=== PATIENT | male | born 1950 | race Caucasian/White ===

== ENCOUNTER 2020-06-19 10:02 | Emergency (ER) | payer OTHER ==
--- OUTSIDE RECORDS SUMMARY | 2020-06-19 10:04 | XMS REPORT | Clinical Summary ---
:1950 Author Organization [facility] Address [address] [place] [address] Care Team Providers Name Role Phone Asked, Pcp Primary Care Provider Unavailable Allergies Active Allergy Reactions Severity Noted Date Comments Cefaclor Rash Low 02/06/2013 RASH AND ITCHIN G ON HANDS Medications Medication Sig Dispensed Refills Start Date End Date Status losartan (COZAAR) 0 07/19/2018 A ctive 100 MG tablet tamsulosin 0 07/19/2018 Active (FLOMAX) 0.4 mg capsule esomeprazole Take 40 mg by 0 Act abdelrahman (NexIUM) 40 MG mouth daily capsule before breakfast. vit B Take 1 tablet 0 Active complex-vitamin by mouth C-folic acid daily. (NEPHRO-GERMAN OTC) 0.8 mg tablet cholecalciferol, Take 1,000 0 Ac tive vitamin D3, 1,000 Units by unit tablet mouth daily. rosuvastatin Take 10 mg by 0 Act abdelrahman (CRESTOR) 10 mg mouth daily. tablet celecoxib TAKE 1 1 04/17/2018 Discontin ued (Med (CeleBREX) 200 MG CAPSULE BY 0 L ist Cleanup) capsule MOUTH EVERY DAY WITH FOOD nabumetone Take 500 mg 2 06/26/2018 Discon tinued (Med (RELAFEN) 500 MG by mouth [address] Cleanup) tablet (two) times a day. rosuvastatin TAKE 1 TABLET 0 06/30/2018 Di scontinued (Med (CRESTOR) 5 MG BY MOUTH 0 List Cleanup) tablet EVERY DAY WITH A MEAL Active Problems Problem Noted Date Nasal turbinate hypertrophy 10/02/2014 MARIE (obstructive sleep apnea) 10/02/2014 Encounters Date Type Specialty Care Team Description 11/12/2019 Documentation ADMIN Keren Newberry RN 11/11/2019 Lab Lab Zan Fleming MD Rese arch subject 11/11/2019 Orders Only ADMIN Keren Newberry RN Resear ch subject (Primary Dx) 11/11/2019 Travel 11/09/2019 Travel 11/09/2019 Abstract Neurology Keren Newberry RN 11/09/2019 Telephone Neurology Keren Newberry RN 10/28/2019 Travel after 06/19/2019 Surgical History Surgery Date Site/Laterality Comments HERNIA REPAIR Medical History Medical History Date Comments Hypertension Hyperlipidemia GERD (gastroesophageal reflux disease) Family History Medical History Relation Name Comments Heart disease Father Diabetes Mother Heart disease Mother Relation Name Status Comments Father Mother Social History Tobacco Use Types Packs/Day Years Used Date Never Smoker Smokeless Tobacco: Never Used Sex Assigned at Date Recorded Not on file Last Filed Vital Signs Not on file Plan of Treatment Health Maintenance Due Date Last Done Comments COVID-19 VACCINE (1 of 2) 1964 COLONOSCOPY SCREENING 02/28/1998 SHINGLES VACCINES (#1) 02/28/1998 65+ PNEUMOCOCCAL VACCINE (1 of 1 - PPSV23) 02/28/2013 INFLUENZA VACCINE 12/19/2019 Procedures Procedure Name Priority Date/Time Associated Diagnosis Comme nts ESTIMATED GFR Routine 11/11/2019 12:13 PM Results for this CDT procedure are i n the results section. CBC HEMOGRAM Routine 11/11/2019 12:13 PM Research subject Resu lts for this CDT procedure are i n the results section. BASIC METABOLIC Routine 11/11/2019 12:13 PM Research subject R esults for this PANEL CDT procedure are i n the results section. after 06/19/2019 Results Estimated GFR (11/11/2019 12:13 PM CDT) Estimated GFR 65 mL/min/1.73 [facility] Comment: [facility] Catergory Units Interpretation G1 >=90 Normal or high G2 60-89 Mildly decreased G3a 45-59 Mildly to moderately decreas ed G3b 30-44 Moderately to severely decre ased G4 15-29 Severely decreased G5 <15 Kidney failure The eGFR was calculated using the Chronic Kidney Disea se Epidemiology Collaboration (CKD-EPI) equation. Interpretation is based on recommendations of the National Kidney Foundation-Kidney Disease Outcomes Favian lity Initiative (NKF-KDOQI) published in 2014. Specimen Performing Organization Address City/State/ZIP Code Phon e Number [facility] DEPARTMENT OF PATHOLOGY AND [address] [place] [address] [phone] [address] CBC hemogram (11/11/2019 12:13 PM CDT) Pathologist Sig nature WBC 6.05 4.50 - 11.00 k/uL [facility] RBC 4.81 4.40 - 6.00 m/uL [facility] HGB 15.5 14.0 - 18.0 g/dL [facility] HCT 45.2 41.0 - 51.0 % [facility] MCV 94.0 82.0 - 100.0 fL [facility] MCH 32.2 27.0 - 34.0 pg [facility] MCHC 34.3 31.0 - 37.0 g/dL [facility] RDW - SD 42.9 37.0 - 55.0 fL [facility] MPV 11.0 8.8 - 13.2 fL [facility] Platelet count 228 150 - 400 k/uL [facility] Nucleated RBC 0.00 /100 WBC [facility] Specimen Blood Performing Organization Address City/[facility] Phon e Number [facility] DEPARTMENT OF PATHOLOGY AND [address] [place] [address] [phone] [address] Basic metabolic panel (11/11/2019 12:13 PM CDT) [facility] Sodium 135 135 - 148 mEq/L [facility] L Potassium 4.3 3.5 - 5.0 mEq/L [facility] L Chloride 96 (L) 98 - 112 mEq/L [facility] CO2 25 24 - 31 mEq/L [facility] Anion gap 14@ANIO 7 - 15 mEq/L [facility] BUN 16 8 - 23 mg/dL [facility] Creatinine 1.12 0.70 - 1.20 mg/dL [facility] Glucose 107 (H) 65 - 99 mg/dL [facility] Calcium 9.8 8.8 - 10.2 mg/dL [facility] Specimen Blood Performing Organization Address City/[facility] Phon e Number [facility] DEPARTMENT OF PATHOLOGY AND [address] [place] [address] [phone] [facility] [address] [place] [address] after 06/19/2019 Advance Directives For more information, please contact: [phone] Type Date Recorded Patient 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
--- OUTSIDE RECORDS SUMMARY | 2020-06-19 10:04 | XMS REPORT | Clinical Summary ---
:1950 Author Organization [facility] Address [address] [place] [address] Care Team Providers Name Role Phone Himanshu Díaz Primary Care Provider Allergies Active Allergy Reactions Severity Noted Date Comments Cefaclor Rash Low 02/06/2013 RASH AND ITCHIN G ON HANDS Medications Medication Sig Dispensed Refills Start Date End Date Status ezetimibe (ZETIA) 10 mg Take 10 mg by 0 Active tablet mouth daily. esomeprazole (NEXIUM) Take 40 mg by 0 Active 40 MG capsule mouth daily. escitalopram (LEXAPRO) Take 20 mg by 0 Active 20 MG tablet mouth daily. losartan (COZAAR) 50 MG Take 100 mg by 0 Active tablet mouth daily . tamsulosin (FLOMAX) 0.4 Take 0.4 mg by 0 Active mg Cp24 24 hr capsule mouth daily. multivitamin capsule Take 1 capsule by 0 Active mouth daily. Missing or kyani daily po ( 0 Ac tive Non-Formulary supplement) . Medication Active Problems No known active problems Social History Tobacco Use Types Packs/Day Years Used Date Former Smoker Quit: 1997 Smokeless Tobacco: Never Used Comments: QUIT SMOKING THE Alcohol Use Drinks/Week oz/Week Comments Yes 2 Glasses of wine 2.0 2 GLASSES PER NIGHT Sex Assigned at Date Recorded Not on file Last Filed Vital Signs Not on file Plan of Treatment Health Maintenance Due Date Last Done Comments PNEUMOCOCCAL 65+ YRS (1 of - 02/28/2013 [id number]) MEDICARE ANNUAL WELLNESS (YEAR 2 or FIRST 02/18/2014 YEAR if no IPPE) INFLUENZA VACCINE (#1) 2020 COLON CANCER SCREENING COLONOSCOPY 08/13/2027 08/12/2017, 0 02/09/2013 Results Not on fileafter 06/19/2019 Insurance Payer Benefit Plan / Subscriber ID Effective Dates Phone Addre ss Type Group MEDICARE MEDICARE A B [id number] 2013-Presen Medicare t AETNA - [place] CARE AETNA OPEN [id number] 2012-Present HMO/POS ACCESS HMO NAP AETNA - [place] CARE AETNA INDEMNITY [id number] 2013-Present Comm NON CONTR Advance Directives For more information, please contact: [phone] Code Status Date Activated Date Inactivated Comments Code ONE 02/09/2013 9:35 AM 02/09/2013 12:15 PM All possib le means of support, including: cardi ac massage, mechanical venti lation, and defibrillation w ill be used to support life.
--- OUTSIDE RECORDS SUMMARY | 2020-06-19 10:05 | XMS REPORT | Summary of Care ---
:1950 Author Name ROSY N.P. Address Unavailable Unavailable , Care Team Providers Name Role Phone ROSY N.P. 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) Status: Active Post-traumatic osteoarthritis of left ankle (715.27, M19.172 ) Status: Active Medications Name Dates Details Gabapentin 300 MG Oral Capsule TAKE 1 CAPSULE EVERY 8 HOURS Quantity: 90 Refills: 1 ROSY N.P., ARIE Start : 17-Jun-2020 Active Allergies and Adverse Reactions Name Dates Details No Known Drug Allergies (Allergy) Status : Active Procedures Procedure Dates Details Post Op Promis 29 Survey Date: 01-Jun-2020 Immunization Name Dates Details Immunizations not documented Social History Name Dates Details Tobacco smoking consumption unknown (finding) Vital Signs Date Test Result Details No Known Vitals to report Results Date Description Value Details Results not documented Plan of Care Name Dates Details Planned Observations Planned Goals not documented Planned Encounters Appointment; RICHY GARNER M.D. On: 19-Jul-2020 11: 30 Interventions Provided Medication ChangesGabapentin 300 MG Oral Capsule - Start Instructions Name Dates Details Instructions not documented Encounters Appointment; RICHY GARNER M.D. On: 16-Nov-2019 9: 50 Encounter Diagnosis: Problem not documented Appointment; RICHY GARNER M.D. On: 08-Feb-2020 14 :50 Encounter Diagnosis: Problem not documented Appointment; ARIE GALLEGOS NP On: 10-Feb-2020 11:40 Encounter Diagnosis: Problem not documented Appointment; ARIE GALLEGOS NP On: 12-Feb-2020 11:15 Encounter Diagnosis: Problem not documented Appointment; ARIE GALLEGOS NP On: 19-Feb-2020 13:00 Encounter Diagnosis: Problem not documented Appointment; RICHY GARNER M.D. On: 27-Apr-2020 14: 00 Encounter Diagnosis: Problem not documented Appointment; RICHY GARNER M.D. On: 10-May-2020 10 :20 Encounter Diagnosis: Problem not documented Appointment; ARIE GALLEGOS NP On: 17-Jun-2020 11:15 Encounter Diagnosis: Problem not documented
--- OUTSIDE RECORDS SUMMARY | 2020-06-19 10:05 | XMS REPORT | Summary of Care ---
:1950 Author Name Kristie Address Unavailable Unavailable , Care Team Providers Name Role Phone Kristie Unavailable Unavailable PATSY CLARK Unavailable Unavailable EMERY CLARK Unavailable Unavailable Unavailable Unavailable Unavailable Functional Status Name Dates Details Functional status health issues are not documented Status: Name Dates Details Cognitive status health issues are not documented Status: Problems Name Dates Details Left ankle pain (719.47, M25.572) Status : Active Arthritis of ankle, left (716.97, M19.072) Status: Active Medications Name Dates Details Medications not documented Allergies and Adverse Reactions Name Dates Details Allergy history not documented Status: Procedures Procedure Dates Details Post Op Promis 29 Survey Date: 01-Jun-2020 Immunization Name Dates Details Immunizations not documented Social History Name Dates Details Tobacco smoking consumption unknown (finding) Vital Signs Date Test Result Details No Known Vitals to report Results Date Description Value Details Results not documented Plan of Care Name Dates Details Planned Observations Planned Goals not documented Planned Encounters Appointment; ARIE GALLEGOS NP On: 07-Jun-2020 10:20 Interventions Provided Labs/Procedures/ImagingPost Op Promis 29 Survey; To Be Done: 01 Jun 2020 Instructions Name Dates Details Instructions not documented [...]
--- OUTSIDE RECORDS SUMMARY | 2020-06-19 10:05 | XMS REPORT | Continuity of Care Document ---
:1950 Author Organization [facility] t Address [address] [place] [address] Care Team Providers Name Role Phone Asked, Pcp Primary Care Physician Unavailable ROSY Attending Clinician Unavailable PATSY Attending Clinician Unavailable Rohith OH Attending Clinician Unavailable Casimiro Fleming MD Attending Clinician Sonny HERNANDEZ Attending Clinician Unavailable Sonny HERNANDEZ Admitting Clinician Unavailable Payers Payer Name Policy Type Policy Effective Date Expiration Date Sour ce Number AETNA MEDICAREAETNA [id number] 2019 [place] MEDICARE HMO/PPO 00:00:00 Methodis t [id number] -PresentHMO Problems Condition Condition Condition Status Onset Resolution Last Treating Co mments Source Name Details Category Date Date Treatment Clinician Date Nasal Nasal Disease Active Marilla turbinate turbinate 5-16 Meth veronica hypertroph hypertroph 00:00: st y y 00 MARIE MARIE Disease Active Marilla (obstructi (obstructi 5-16 Me thodi ve sleep ve sleep 00:00: st apnea) apnea) 00 Left ankle Left ankle Problem Active U nivers pain pain [facility] [place] [facility] Arthritis Arthritis Problem Active Uni vers of ankle, of ankle, ity of left left [place] [facility] Achilles Achilles Problem Active Unive rs tendon tendon [place] contract[place] contractur [place] due to e due to Physic i neurologic neurologic an s cause cause Post-traum Post-traum Problem Active U nivers atic atic ity of osteoarth[place]oarthr [place] itis of itis of Physici left ankle left ankle an s Allergies, Adverse Reactions, Alerts Allergy Allergy Status Severity Reaction(s) Onset Inactive Treating Comm ents Source Name Type Date Date Clinician No Known DA Active U 2019- [facility] Allergie 2-19 [facility] [place] Cefaclor Propensi Active Rash RASH [place] to 02-06 [place] Methodi adverse 00:00: ON HANDS st reaction 00 s to drug Cefaclor Propensi Active Rash RASH [facility] - adverse 00:00: ON HANDS Medical reaction 00 Center s Family History Family Member Diagnosis Comments Start Date Stop Date Source Natural father Heart disease [facility] Natural mother [facility] Natural mother Heart disease [facility] Social History Social Habit Start Date Stop Date Quantity Comments Source History of Current smoker [facility] es - tobacco use [facility] Cent[facility] r Sex Assigned At [facility] Tobacco use and 2017-08-12 2017-08-12 Never used [facility] - exposure 00:00:00 00:00:00 [facility] Alcohol intake 2017-08-12 2017-08-12 Current drinker [facility] Terry nassar [facility] - 00:00:00 00:00:00 of [facility] (finding) Tobacco Comment 2013-02-09 2013-02-09 QUIT SMOKING THE [facility]soco - 00:00:00 00:00:[address] [place] [address] Alcohol Comment 2013-02-06 2013-02-06 2 GLASSES PER [facility]soco - 00:00:00 00:00:00 [facility] Smoking Status Start Date Stop Date Source Never smoker [facility] [place] Former smoker 2017-08-12 00:00:00 2017-08-12 00:00:00 [facility] Medications Ordered Filled Start Stop Current Ordering Indication Dosage Frequency Signature Comments Components Source Medication Medication Date Date Medication? Clinician (SIG) Name Name Gabapentin Gabapentin Yes ARIE 1 Q8H TAKE 1 Univers 300 MG Oral 300 MG Oral 1-29 ROSY CAPSULE ity of Capsule Capsule 00:00: N.P. EVERY 8 [place] 00 HOU[place] Physici ans rosuvastati 2019-0 Yes 10mg QD Take 10 mg [facility] n (CRESTOR) 6-22 by mouth Meth veronica 10 mg 16:05: daily. st tablet 22 cholecalcif 2019-0 Yes 1000U QD Take 1,000 Marilla kathya, 6-22 Units by Methodi vitamin D3, 16:02: mouth st 1,000 unit 16 daily. tablet vit B 2019- Yes 1{tbl} QD Take 1 Marilla complex-vit 6-22 tablet by Met mp batres 16:02: mouth st C-folic 00 daily. acid (NEPHRO-VIT E OTC) 0.8 mg tablet esomeprazol Yes 40mg QD Take 40 mg Hector e (NexIUM) 6-22 by mouth Metho di 40 MG 16:01: daily st capsule 23 before breakfast. losartan Yes Marilla (COZAAR) 3-02 Methodi 100 MG 00:00: st tablet 00 tamsulosin Yes Marilla (FLOMAX) 3 Methodi 0.4 mg 00:00: st capsule 00 rosuvastati 2020- No TAKE 1 Seun ston n (CRESTOR) 2-03 25- TABLET BY Hi thodi 5 MG tablet 00:00: 00:[address] 00 :00 EVERY DAY WITH A MEAL nabumetone 2020- No 500mg Q.5D Take 500 [place] (RELAFEN) 2- 06-22 mg by Methodi 500 MG 00:00: 00:[address] tablet 00 :00 (two) times a day. celecoxib 2017-05 2020- No TAKE 1 [place] (CeleBREX) 06-17- CAPSULE BY Hi thodi 200 MG 00:00: 00:[address] capsule 00 :00 EVERY DAY WITH FOOD ezetimibe Yes 10mg QD Take [address] (ZETIA) 10 - by mouth [facility] - mg tablet 11:59: daily. Medica l 10 [place] esomeprazol Yes 40mg QD Take [address] [facility] (NEXIUM) 3-26 by mouth [facility] - 40 MG 11:59: daily. Medical capsule 10 [place] escitalopra Yes 20mg QD Take [address] [facility] (LEXAPRO) 3-26 by mouth Luke s - 20 MG 11:59: daily. Medical tablet 10 Center losartan Yes 100mg QD Take [address] (COZAAR) 50 3-26 mg by [facility] - MG tablet 11:59: mouth Medical 10 daily . [place] tamsulosin Yes .4mg QD Take 0.[address] (FLOMAX) 3-26 mg by [facility] - 0.4 mg Cp24 11:59: mouth Medic al 24 hr 10 daily. [place] capsule multivitami Yes 1{capsu QD Take [address] n capsule 3-26 le} capsule by Luke s - 11:59: mouth Medical 10 daily. Center Missing or Yes kyani [facility] Non-Formula 3-26 daily po ( Delaney kes - ry 11:59: supplement Medical Medication 10 ) . [place] Procedures Procedure Date / Time Performed Performing Clinician Sourc e Post Op Promis 29 2020-06-01 00:00:00 [facility] CT Ankle without 2020-01-20 00:00:00 [facility] contrast [id number] Ankle without 2019-11-16 00:00:00 [facility] contrast [id number] Physicians BASIC METABOLIC PANEL 2019-11-11 12:13:00 Zan Fleming CBC HEMOGRAM 2019-11-11 12:13:00 Zan Fleming ESTIMATED GFR 2019-11-11 12:13:00 Zan Fleming Plan of Care Planned Activity Planned Date Details Comments Source Future Scheduled 2027-08-[address] [facility] - Test 00:00:00 malignant neoplasm of Medica l Center colon (procedure) [code = 246116912] Future Scheduled 2020-01-[address] [facility] - Test 00:00:00 (#1) [code = [facility] INFLUENZA VACCINE (#1)] Future Scheduled 2019-12-19 INFLU[place]ZA VACCINE [place] [facility] Test 00:00:00 [code = INFLUENZA VACCINE] Future Scheduled 2014-02-[address] [facility] - Test 00:00:00 WELLNESS (YEAR 2 or Medical Center FIRST YEAR if no IPPE) [code = MEDICARE ANNUAL WELLNESS (YEAR 2 or FIRST YEAR if no IPPE)] Future Scheduled 2013-02-28 65+ PNEUMOCOCCAL [facility] Test 00:00:00 VACCINE (1 of 1 - PPSV23) [code = 65+ PNEUMOCOCCAL VACCINE (1 of 1 - PPSV23)] Future Scheduled 2013-02-28 PNEUMOCOCCAL 65+ [facility] - Test 00:00:00 (1 of 1 - Medical Center [id number] PCV13) [code = PNEUMOCOCCAL 65+ YRS (1 of 1 - [id number] PCV13)] Future Scheduled 1998-02-28 COLONOSCOPY SCREENING [place] [facility] Test 00:00:00 [code = COLONOSCOPY SCREENING] Future Scheduled 1998-02-28 SHINGLES VACCINES [place] [facility] Test 00:00:00 (#1) [code = SHINGLES VACCINES (#1)] Future Scheduled 1964 COVID-19 VACCINE (1 [place] [facility] Test 00:00:00 of 2) [code = COVID-19 VACCINE (1 of 2)] Future Appointment 2020-07-19 Glory LOCKHART [facility] 11:30:00 Juli GARNER Encounters Start End Encounter Admission Attending Care Care Encounter Source Date/Time Date/Time Type Type Clinicians Facility Department ID 2020-06-17 2020-06-17 LUISANA Quarles Orthopedics [id number] Univers 11:15:00 11:15:00 t; SON SARGENT at [facility] SON SARGENT Orthopedic Ph ysici and Spine [facility] 2020-05-10 2020-05-10 LUISANA Tran UTP [id number] Univers 10:20:00 10:20:00 t; elizabet LOCKHART M.D. [place] Deanna LOCKHART M.D. [facility] 2020-04-27 2020-04-27 LUISANA Tran [id number] Univers 14:00:00 14:00:00 t; elizabet LOCKHART M.D. [place] Deanna LOCKHART M.D. [facility] 2020-04-27 2020-04-27 Outpatient [facility] [id number] 05:02:00 05:02:00 Orthop e dic and Sp[facility] Hospita l 2020-02-19 2020-02-19 LUISANA Quarles UTP [id number] Univers 13:00:00 13:00:00 t; ARIE, PROOFER APPRENTICE ity [place], [place] ARIE, PROOFER APPRENTICE Physi ci ans 2020-02-12 2020-02-12 Appointmen ROSY[facility] UTP [id number] Univers 11:15:00 11:15:00 t; ARIE, PROOFER APPRENTICE [facility] ARIE, PROOFER APPRENTICE Physi ci ans 2020-02-10 2020-02-10 Appointmen ROSY, [facility] UTP [id number] Univers 11:40:00 11:40:00 t; ARIE PROOFER APPRENTICE [facility] [place] ARIE, PROOFER APPRENTICE Physi ci ans 2020-02-08 2020-02-08 Appointmen PATSY, [facility] UTP [id number] Univers 14:50:00 14:50:00 t; elizabet LOCKHART M.D. [place] Deanna LOCKHART M.D. [facility] 2019-11-16 2019-11-[facility] Orthopedics [id number] Univers 09:50:00 09:50:00 t; carola LOCKHART [facility] pablo GARNER M.D. [facility] RICHY Orthopedic Uche shaw M.D. and Spine [facility] 2019-11-11 2019-11-11 Outpatient [facility] [id number] [place]illa 00:00:00 00:00:00 ZAN [address] 2019-11-11 2019-11-11 Outpatient [facility] [id number] [place] 00:00:00 00:00:[address] Results Test Description Test Time Test Comments Results Result Sourc e Comments [U] XRAY ANKLE 2019-11-[address] [facility] 3 VWS LEFT 09:34:00 acquired, not [place] [id number] reported on Physicians this accession number. Basic metabolic panel 2019-11-11 13:58:28 Test Item Value Reference Range Interpretation Comme nts Sodium (test code = 2951-2) 135 135- 148 mEq/L Potassium (test code = 2823-3) 4.3 3.5- 5.0 mEq/L Chloride (test code = 2075-0) 96 98- 112 mEq/L L CO2 (test code = 8-9) 25 24- 31 mEq/L Anion gap (test code = 69520-9) 14@ANIO 7- 15 mEq/L BUN (test code = 3094-0) 16 mg/dL 8-23 Creatinine (test code = 2160-0) 1.12 mg/dL 0.7-1.2 Glucose (test code = 2345-7) 107 mg/dL 65-99 H Calcium (test code = 01912-1) 9.8 mg/dL 8.8-10.2 Lab Interpretation (test code = 93146-9) Abnormal [facility] [id number] 13:58:28 Test Item Value Reference Range Interpretation Comments Estimated GFR (test 65 mL/min/1.73 m2 [facility] Units code = 5488) InterpretationG 1 >=90 Normal or highG2 60-89 Mildly npuzfnzcgI9b 45-59 Mildly to mode rately dcncedrezZ6p 30-44 Moderately to severely decreasedG4 15-29 Severely decre asedG5 <15 Kidn ey failureThe eGFR was calculated alexys hoover the Chronic Kidney Disease Epidemiology Co llaboration (CKD-EPI) equat ion. Interpretation is based on recommendations of the National Kidney Foundation-Kidn ey Disease Outcomes Qualit y Initiative (NKF-KDOQI) pub lished in 2014. Marilla [facility] [id number] 13:29:37 Test Item Value Reference Range Interpretation Comments WBC (test code = 69682-4) 6.05 4.50- 11.00 k/uL RBC (test code = 24560-4) 4.81 m/uL 4.4-6 HGB (test code = 718-7) 15.5 g/dL 14-18 HCT (test code = 4544-3) 45.2 % 41-51 MCV (test code = 787-2) 94.0 fL 82-100 MCH (test code = 785-6) 32.2 pg 27-34 MCHC (test code = 786-4) 34.3 g/dL 31-37 RDW - SD (test code = 83972-9) 42.9 fL 37-55 MPV (test code = 15671-4) 11.0 fL 8.8-13.2 Platelet count (test code = 228 150- 400 k/uL 85137-4) Nucleated RBC (test code = 0.00 /100 WBC 94583-7) [facility] HIV 1 20:39:00 Test Item Value Reference Range Interpretation Comments AB HIV 1 2 (test NONREACTIVE NONREACTIVE Done by Terry shaferEduSourcedterry Qualifacts Systemsaur code = [id number]) 4th Gen HIV Ag/Ab Combo Screen AB HIV 20:39:00 Test Item Value Reference Range Interpretation Comments AB HIV 1 (test code NONREACTIVE NONREACTIVE Done by weeSPINaur = HIV1AB) 4th Gen HIV Ag/ Ab Combo Screen PROTHROMBIN [id number] 19:09:00 Test Item Value Reference Range Interpretation Comments PROTHROMBIN TIME 10.7 secs 10.1-12.5 N PATIENT (test code = PTP) INTERNATIONAL NORMAL 0.95 <2.0 RECOMME NDED THERAPEUTIC RATIO (test code = RANGE FOR ORAL INR) ANTICOAGULANTTR EATMENT: CONDI TION INRProphylaxis of venous thrombos is in 2.0 - 3.0 high-risk medic al or surgical patientsTreatme nt of venous thrombos is 2.0 - 3.0Prevention o f embolism 2.0 - 3.0Prevention o f recurrent embol ism, or 3.0 - 4. 5 patients with mechanical pros thetic intravascular v marvin IS PATIENT ON ANTICOAGULANTS ? ILas Lab been notified if Patient is on Heparin Drip? NOTHROMBOPLASTIN TIME [id number] 19:09:00 Test Item Value Reference Range Interpretation Comments PTT ACTIVATED (test code = APTT) 32.5 secs 24.9-37.0 N IS PATIENT ON ANTICOAGULANTS ? ILas Lab been notified if Patient is on Heparin Drip? NOCOMPREHENSIVE METABOLIC [id number] 19:09:00 Test Item Value Reference Range Interpretation Comments SODIUM (test code = 139 mmol/L 136-145 N NA) POTASSIUM (test code = 4.2 mmol/L 3.5-5.1 N K) CHLORIDE (test code = 100.0 mmol/L 98-107 N CL) CARBON DIOXIDE (test 25.8 mmol/L 21-32 N code = CO2) GLUCOSE (test code = 100 mg/dL 70-110 N GLU) BLOOD UREA NITROGEN 14 mg/dL 7-18 N (test code = BUN) GLOMERULAR FILTRATION 79.1 >60 Unit o f measure: RATE (test code = GFR) mL/mi n/1.73 [id number] Range:Healthy Adults >90 mL/min/1.73 m2 For Chronic Kidney Disease: St age II Mild Decrease in GFR 60-90 St age III Moderate Decrease in GFR 30-59 Stage IV Severe Decre ase in GFR 15- 29 Stage V Kidney Failure <15 CREATININE (test code 0.94 mg/dL 0.55-1.30 N = CREAT) TOTAL PROTEIN (test 7.4 g/dL 6.4-8.2 N code = PROT) ALBUMIN (test code = 4.5 g/dL 3.4-5.0 N ALB) GLOBULIN (test code = 2.9 g/dL 2.2-4.2 N GLOB) ALBUMIN/GLOBULIN RATIO 1.6 0.7-2.0 N (test code = A/G) CALCIUM (test code = 9.0 mg/dL 8.2-10.1 N CA) BILIRUBIN TOTAL (test 0.49 mg/dL 0.2-1.00 N code = BILT) SGOT/AST (test code = 30.0 U/L 15-37 N AST) SGPT/ALT (test code = 48.0 U/L 12-78 N Please note new ALT) normal range. ALKALINE PHOSPHATASE 67 U/L 46-116 N TOTAL (test code = ALKP) CBC W/AUTO [id number] 18:54:00 Test Item Value Reference Range Interpretation Comments WHITE BLOOD CELL (test code = WBC) 6.6 K/mm3 5.7-10.5 N RED BLOOD CELL (test code = RBC) 4.74 M/mm3 4.2-5.4 N HEMOGLOBIN (test code = HGB) 15.3 g/dL 12-16 N HEMATOCRIT (test code = HCT) 43.0 % 37-47 N MEAN CELL VOLUME (test code = MCV) 91 fL 80-98 N MEAN CELL HGB (test code = MCH) 32.3 pg 27-34 N MEAN CELL HGB CONCENTRATION (test 35.6 g/dL 30.8-34.1 H code = MCHC) RED CELL DISTRIBUTION WIDTH (test 12.2 % 11-16 N code = RDW) PLT (test code = PLT) 249 K/mm3 130-400 N MEAN PLATELET VOLUME (test code = 11.2 fL 8.9-12.1 N MPV) NEUTROPHIL % (test code = NT%) 57.0 % 45-70 N LYMPHOCYTE % (test code = LY%) 29.1 % 20-40 N MONOCYTE % (test code = MO%) 11.3 % 3-10 H EOSINOPHIL % (test code = EO%) 1.7 % 1-5 N BASOPHIL % (test code = BA%) 0.6 % 0.0-1.1 N NEUTROPHIL # (test code = NT#) 3.75 K/mm3 2.00-7.50 N LYMPHOCYTE # (test code = LY#) 1.91 K/mm3 1.50-4.00 N MONOCYTE # (test code = MO#) 0.74 K/mm3 0.2-0.8 N EOSINOPHIL # (test code = EO#) 0.11 K/mm3 0.04-0.4 N BASOPHIL # (test code = BA#) 0.04 K/mm3 0.02-0.10 N MANUAL DIFF REQUIRED (test code = NO MANUAL DIFF MDIFF) NUCLEATED RED BLOOD CELL (test 0 % 0-0 N code = NRBC) TISSUE [id number] 10:19:00Surgical Pathology Report Case: [id number] Authorizing Provider: Gatito Hernandez MD Collected: 08/12/2017 1047 Ordering Location: [facility] Endoscopy Received: 08/12/2017 1418 Services Pathologist: Doc Sanchez MD Specimen: Large Intestine, Colon - Right/Ascending, ascending colon polyps ( 2 hot snare ) COLON, RIGHT/ASCENDING POLYPSX2, BIOPSY: - MULTIPLE FRAGMENTS OF TUBULAR ADENOMA Signing Pathologist Direct Phone Line: [phone] signed by Doc Sanchez MD on 08/13/2017 at 10:19 [id number] of colon polypAscending colon polyp x2The specimen is received in a formalin-filled container and labeled with the patient's information and labeled "right ascending colon polyp x2" and consists of multiple fragments of potts-pink soft tissue ranging from 0.1 to 0.5 cm, submitted entirely A1. CG/pl Performed.
[2020-06-19 10:39] LABS: Absolute Lymphocytes (CBC) 1.5 K/uL (0.7-4.9); Basophils % 0.7 % (0-1.3); Hematocrit 40.5 % (39.6-49.0); Lymphocytes % 24.7 % (15.3-44.8); MPV 9.3 fL (7.6-11.3)
[2020-06-19 10:43] LABS: Protime INR 1.01
[2020-06-19 10:51] LABS: ALT/SGPT 32 U/L (12-78); AST/SGOT 17 U/L (15-37); Alkaline Phosphatase 86 U/L (45-117); BUN Blood Urea Nitrogen 12 mg/dL (7-18); Bicarbonate 27 mmol/L (21-32); Bilirubin Direct 0.1 mg/dL (0-0.2); Bilirubin Total 0.4 mg/dL (0.2-1.0); Glucose Level 107 mg/dL (74-106); Magnesium 2.1 mg/dL (1.8-2.4); NT PRO-BNP 31 pg/mL (<125); Potassium 4.2 mmol/L (3.5-5.1); Protein, Total 7.7 g/dL (6.4-8.2); Sodium Level 136 mmol/L (136-145); Troponin (Emerg Dept Use Only) < 0.02 ng/mL (0.0-0.045)
--- NOTE | 2020-06-19 11:09 | RAD REPORT ---
EXAM DESCRIPTION: CT - Head Brain Wo Cont - 06/19/2020 10:54 am CLINICAL HISTORY: Headache COMPARISON: None TECHNIQUE: Computed axial tomography of the head was obtained. IV contrast was not requested. All CT scans are performed using dose optimization technique as appropriate and may include automated exposure control or mA/KV adjustment according to patient size. FINDINGS: An intracranial bleed is not seen . The ventricles are normal in caliber. No extra-axial fluid collection is noted. Fluid within the sinuses/ mastoids is not seen. IMPRESSION: No acute intracranial abnormality is seen. If patient's symptoms persist MRI of the bra in would be recommended.
--- NOTE | 2020-06-19 11:14 | RAD REPORT ---
EXAM DESCRIPTION: Rosi Single View06/19/2020 11:07 am CLINICAL HISTORY: Chest pain COMPARISON: 2017 FINDINGS: The lungs appear clear of acute infiltrate. The heart is normal size IMPRESSION: No acute abnormalities displayed
--- NOTE | 2020-06-19 11:22 | ER ---
Nurse's Notes [facility] Name: Jason Jimenez Jr Age: 70 yrs Sex: Male : 1950 Arrival Date: 06/19/2020 Time: 10:06 Bed 6 Private MD: Bobby Díaz V Diagnosis: Other disturbances of skin sensation-left forearm numbness - resolved Presentation: 06/19 10:14 Chief complaint: Intermittent dizziness and left arm numbness x 3 days. Coronavirus hb screen: At this time, the client does not indicate any symptoms associated with coronavirus-19. Ebola Screen: No symptoms or risks identified at this time. Initial Sepsis Screen: Does the patient meet any 2 criteria? No. Patient's initial sepsis screen is negative. Does the patient have a suspected source of infection? No. Patient's initial sepsis screen is negative. Risk Assessment: Do you want to hurt yourself or someone else? Patient reports no desire to harm self or others. Onset of symptoms was June 17, 2020. 10:14 Acuity: MILTON 3 hb 10:14 Method Of Arrival: Ambulatory hb Triage Assessment: 10:14 General: Appears in no apparent distress. Behavior is calm, cooperative. Pain: Denies hb pain. EENT: No signs and/or symptoms were reported regarding the EENT system. Neuro: Level of Consciousness is awake, alert, obeys commands, Oriented to person, place, time, situation. Cardiovascular: Capillary refill < 3 seconds Patient's skin is warm and dry. Rhythm is regular. Respiratory: Respiratory effort is even, unlabored, Respiratory pattern is regular, symmetrical. GI: No signs and/or symptoms were reported involving the gastrointestinal system. : No signs and/or symptoms were reported regarding the genitourinary system. Derm: Skin is pink, warm \T\ dry. Musculoskeletal: No signs and/or symptoms reported regarding the musculoskeletal system. Historical: - Allergies: 10:10 Ceclor; hb - PMHx: 10:17 Hypertension; ss - PSHx: 10:17 Hernia repair; ss - Immunization history:: Adult Immunizations up to date. - Social history:: Smoking status: Patient denies any tobacco usage or history of. - Family history:: not pertinent. Screenin:16 Abuse screen: Denies threats or abuse. Denies injuries from another. Nutritional hb screening: No deficits noted. Tuberculosis screening: No symptoms or risk factors identified. Fall Risk Total Reina Fall Scale indicates Low Risk Score (25-44 pts). Fall prevention measures have been instituted. Side Rails Up X 2 Frequent Obs/Assesments occuring As available Patient and Family Educated on Fall Prevention Program and strategies. Assessment: 10:16 General: see triage assessment. hb 11:00 Reassessment: Patient appears in no apparent distress at this time. Patient and/or hb family updated on plan of care and expected duration. Pain level reassessed. Patient is alert, oriented x 3, equal unlabored respirations, skin warm/dry/pink. Vital Signs: 10:14 BP 150 / 88; Pulse 74; Resp 16; Temp 97.7; Pulse Ox 97% on R/A; Pain 0/10; hb 10:16 Weight 101.15 kg; Height 5 ft. 11 in. (180.34 cm); ss 11:00 BP 127 / 80; Pulse 80; Resp 16; Pulse Ox 99% on R/A; hb 10:16 Body Mass Index 31.10 (101.15 kg, 180.34 cm) ED Course: 10:06 Patient arrived in ED. mr 10:07 Bobby Díaz MD is Private Physician. mr 10:09 Jeanie Yee, ADRIANO is Primary Nurse. hb 10:09 Arm band placed on. hb 10:10 Bradley Daigle MD is Attending Physician. ma2 10:15 Triage completed. hb 10:16 Patient has correct armband on for positive identification. Placed in gown. Bed in low hb position. Call light in reach. 10:21 EKG done, by ED staff, reviewed by Bradley Daigle MD. dh3 10:26 Inserted saline lock: 20 gauge in right antecubital area, using aseptic technique. hb Blood collected. 10:54 CT Head Brain wo Cont In Process Unspecified. EDMS 11:07 XRAY Chest (1 view) In Process Unspecified. EDMS 11:37 No provider procedures requiring assistance completed. IV discontinued, intact, hb bleeding controlled, No redness/swelling at site. Administered Medications: No medications were administered Outcome: 11:20 Discharge ordered by . ma2 11:37 Discharged to home ambulatory. hb 11:37 Condition: stable 11:37 Discharge instructions given to patient, Instructed on discharge instructions, follow up and referral plans. medication usage, Demonstrated understanding of instructions, follow-up care, medications. 11:38 Patient left the ED. Signatures: Dispatcher [employer] EDCA Alma Pond Missy Salvador, Jeanie Smalls RN, RN RN hb Herrera, Deanna 3 Bradley Daigle MD MD la2
--- NOTE | 2020-06-19 11:22 | EDPHYS ---
Physician Documentation [facility] Name: Jason Jimenez Jr Age: 70 yrs Sex: Male : 1950 Arrival Date: 06/19/2020 Time: 10:06 Bed 6 Private MD: Bobby Díaz V ED Physician Bradley Daigle HPI: 06/19 11:17 This 70 yrs old Male presents to ER via Ambulatory with complaints of ma2 Numbness Of Arm, Dizziness. 11:17 This 70 yrs old Male presents to ER via Ambulatory with complaints of ma2 Numbness Of Arm, Dizziness. 11:17 The complaints affect the dorsal aspect of left forearm. Onset: The symptoms/episode ma2 began/occurred gradually, 1 day(s) ago. Associated signs and symptoms: Pertinent negatives: erythema, nausea, numbness. Severity of symptoms: At their worst the symptoms were very mild, in the emergency department the symptoms have resolved. The patient has experienced similar episodes in the past. 11:17 patient has MRI scheduled for tomorrow, no symptoms at this time.. . ma2 Historical: - Allergies: 10:10 Ceclor; hb - PMHx: 10:17 Hypertension; ss - PSHx: 10:17 Hernia repair; ss - Immunization history:: Adult Immunizations up to date. - Social history:: Smoking status: Patient denies any tobacco usage or history of. - Family history:: not pertinent. ROS: 11:17 Constitutional: Negative for fever, chills, and weight loss. ma2 11:17 All other systems are negative. Exam: 11:17 Constitutional: This is a well developed, well nourished patient who is awake, alert, ma2 and in no acute distress. Head/Face: Normocephalic, atraumatic. Eyes: Pupils equal round and reactive to light, extra-ocular motions intact. Lids and lashes normal. Conjunctiva and sclera are non-icteric and not injected. Cornea within normal limits. Periorbital areas with no swelling, redness, or edema. ENT: Nares patent. No nasal discharge, no septal abnormalities noted. Tympanic membranes are normal and external auditory canals are clear. Oropharynx with no redness, swelling, or masses, exudates, or evidence of obstruction, uvula midline. Mucous membranes moist. Neck: Trachea midline, no thyromegaly or masses palpated, and no cervical lymphadenopathy. Supple, full range of motion without nuchal rigidity, or vertebral point tenderness. No Meningismus. Chest/axilla: Normal chest wall appearance and motion. Nontender with no deformity. No lesions are appreciated. Cardiovascular: Regular rate and rhythm with a normal S1 and S2. No gallops, murmurs, or rubs. Normal PMI, no JVD. No pulse deficits. Respiratory: Lungs have equal breath sounds bilaterally, clear to auscultation and percussion. No rales, rhonchi or wheezes noted. No increased work of breathing, no retractions or nasal flaring. Abdomen/GI: Soft, non-tender, with normal bowel sounds. No distension or tympany. No guarding or rebound. No evidence of tenderness throughout. MS/ Extremity: Pulses equal, no cyanosis. Neurovascular intact. Full, normal range of motion. Neuro: Awake and alert, GCS 15, oriented to person, place, time, and situation. Cranial nerves II-XII grossly intact. Motor strength 5/5 in all extremities. Sensory grossly intact. Cerebellar exam normal. Normal gait. Vital Signs: 10:14 BP 150 / 88; Pulse 74; Resp 16; Temp 97.7; Pulse Ox 97% on R/A; Pain 0/10; hb 10:16 Weight 101.15 kg; Height 5 ft. 11 in. (180.34 cm); ss 11:00 BP 127 / 80; Pulse 80; Resp 16; Pulse Ox 99% on R/A; hb 10:16 Body Mass Index 31.10 (101.15 kg, 180.34 cm) MDM: 10:10 Patient medically screened. ma2 11:17 Differential diagnosis: dehydration , unlikely acs or tia. Data reviewed: vital signs, ma2 nurses notes. Counseling: I had a detailed discussion with the patient and/or guardian regarding: the historical points, exam findings, and any diagnostic results supporting the discharge/admit diagnosis, the presence of at least one elevated blood pressure reading (>120/80) during this emergency department visit, the need for outpatient follow up. Response to treatment: the patient's symptoms have markedly improved after treatment. 06/19 10:15 Order name: Basic Metabolic Panel; Complete Time: 11:16 ma2 06/19 10:15 Order name: CBC with Diff; Complete Time: 11:16 06/19 10:15 Order name: LFT's; Complete Time: 11:16 06/19 10:15 Order name: Magnesium; Complete Time: 11:16 06/19 10:15 Order name: NT PRO-BNP; Complete Time: 11:16 06/19 10:15 Order name: PT-INR; Complete Time: 11:16 06/19 10:15 Order name: Troponin (emerg Dept Use Only); Complete Time: 11:16 06/19 10:15 Order name: XRAY Chest (1 view); Complete Time: 11:16 06/19 10:15 Order name: EKG; Complete Time: :16 06/19 10:15 Order name: Cardiac monitoring; Complete Time: 10:17 06/19 10:15 Order name: EKG - Nurse/Tech; Complete Time: 10:48 06/19 10:15 Order name: IV Saline Lock; Complete Time: 11:06/19 10:15 Order name: Labs collected and sent; Complete Time: 11:06/19 10:35 Order name: CT Head Brain wo Cont; Complete Time: 11:06/19 10:15 Order name: O2 Per Protocol; Complete Time: 10:06/19 10:15 Order name: O2 Sat Monitoring; Complete Time: 10:17 ma2 Administered Medications: No medications were administered Disposition: 06/19/20 11:20 Discharged to Home. Impression: Other disturbances of skin sensation - left forearm numbness - resolved . - Condition is Stable. - Discharge Instructions: Magnetic Resonance Imaging, [id number], Aspirin and Your Heart. - Medication Reconciliation Form, Thank You Letter, Antibiotic Education, Prescription Opioid Use form. - Follow up: Private Physician; When: Tomorrow; Reason: Continuance of care. Signatures: Dispatcher [employer] EDMissy Valladares RN RN Jeanie Yee RN RN hb Alzahri, Mohammad, MD MD ia2 Corrections: (The following items were deleted from the chart) 11:38 11:20 06/19/2020 11:20 Discharged to Home. Impression: Other disturbances of skin hb sensation - left forearm numbness - resolved . Condition is Stable. Forms are Medication Reconciliation Form, Thank You Letter, Antibiotic Education, Prescription Opioid Use. Follow up: Private Physician; When: Tomorrow; Reason: Continuance of care. ma2
[2020-06-19 11:43] VITALS: TEMP 97.7
[2020-06-19 11:44] VITALS: BP 127/80; O2SAT 99
--- NOTE | 2020-06-20 08:20 | EKG ---
Test Date: 2020-06-19 Test Time: 10:18:37 Embroidery Operator: GISELA MEASUREMENT RESULTS: Intervals: Rate: 70 [place]: 202 QRSD: 84 QT: 392 QTc: 423 [place]: P: 45 [place]: 202 QRS: -26 T: 29 INTERPRETIVE STATEMENTS: Normal sinus rhythm Normal ECG Compared to ECG 04/08/2007 08:19:58 No significant changes Electronically Signed On 06-20-20 08:17:47 [employer]ARD TRUCK DRIVER by Scott Andrade
== END 2020-06-19 11:38 | disposition home or self-care (01) ==
LOC: ER 10:02
DX: R20.9 Unspecified disturbances of skin sensation (principal); Z88.1 Allergy status to other antibiotic agents
CPT/HCPCS: 36415; 70450; 71045; 80048; 80076; 83735; 83880; 84484; 85025; 85610; 93005; 99284

== ENCOUNTER 2020-09-01 12:51 | Day surgery (SDC) | payer OTHER ==
[2020-08-29 10:44] LABS: Absolute Lymphocytes (CBC) 1.7 K/uL (0.7-4.9); Basophils % 0.6 % (0-1.3); Hematocrit 44.1 % (39.6-49.0); Lymphocytes % 25.2 % (15.3-44.8); MPV 9.6 fL (7.6-11.3); RBC Red Blood Cell Count 4.92 M/uL (4.33-5.43)
[2020-08-29 10:59] LABS: Protime INR 0.97
[2020-08-29 11:06] LABS: Potassium 4.5 mmol/L (3.5-5.1)
[~2020-09-01 12:51] MED LIST: HEPA 1000U/500MLS 2,000 UNIT/1,000 ML BAG IV ONE
[2020-09-01] MEDS ORDERED: NA CHLORIDE 0.9% 500 ML ONE (16:01)
[2020-09-01] MEDS ORDERED: LIDOCAINE 1% MPF 5 ML VIAL ONE (17:24)
[2020-09-01] MEDS ORDERED: MIDAZOLAM HCL 2 MG/2 ML INJ ONE (17:26)
[2020-09-01] MEDS ORDERED: FENTANYL CITR 100 MCG/2 ML ONE (17:27)
[2020-09-01] MEDS ORDERED: ATROPINE SULF 1 MG/10 ML SYR IV ONE (17:27)
[2020-09-01] MEDS ORDERED: HYDRALAZINE HCL 20 MG/ML VIAL ONE (18:10)
[2020-09-01 18:19] VITALS: TEMP 97.4
[2020-09-01 19:17] VITALS: BP 117/96; O2SAT 97
--- NOTE | 2020-09-02 01:45 | OP ---
Date of Procedure: 09/01/2020 Surgeon: SANTO ALCANTAR Procedure Performed: Bilateral selective carotid angiogram. Indication: Carotid stenosis found on ultrasound. Access: Right femoral artery 6-Cameroonian, closed with 6-Cameroonian Angio-Seal. Complications: None. Description Of Procedure: After risks, benefits, and alternatives were explained, the patient agreed to the procedure and signed informed consent. Patient was brought into the cardiac catheterization laboratory, prepped and draped in usual sterile fashion. Then we accessed the right femoral artery u sing an ultrasound guidance and fluoroscopy, and placed 6-Cameroonian sheath and then took a 4-Cameroonian 3DRC diagnostic catheter into the aortic root, engaged the brachiocephalic artery and then with the wire guidance engaged selectively the right common carotid artery and did a selective angiogram with stand mirtha views. Then, the catheter was moved back to engage the left common carotid artery and took stand mirtha views. Then removed the catheter. Sheath was removed. I placed 6-Cameroonian Angio-Seal with good h emostasis. Findings: 1.Right common carotid artery is normal. No disease. 2.Right internal carotid artery has proximal 80% stenosis. 3.Right external carotid artery is normal. 4.Left common carotid artery is normal. 5.Left internal carotid artery is normal. 6.Left external carotid artery is normal. Conclusion: Severe right internal carotid artery stenosis. Recommendation: Continue aspirin, high-dose statin. Patient does not have any history of stroke. W e will plan to consult CT Surgery as an outpatient for possible endarterectomy. /NIKIA Voice ID: [id number] Report ID: [id number]
== END 2020-09-01 20:00 | disposition home or self-care (01) ==
LOC: CCL 12:51
PROVIDERS: ATTEND Internal Medicine
DX: I65.21 Occlusion and stenosis of right carotid artery (principal); I10 Essential (primary) hypertension; E78.5 Hyperlipidemia, unspecified; F17.210 Nicotine dependence, cigarettes, uncomplicated; Z88.1 Allergy status to other antibiotic agents; Z82.49 Family history of ischemic heart disease and other diseases of the circulatory system
CPT/HCPCS: 93005; 85025; 80048; 36415; 85610; 85730; 36222; U0002; C1893; C1760; J7040; J1644; J0360; J2250; J3010

== ENCOUNTER 2022-03-16 18:36 | Emergency (ER) | payer OTHER ==
[2022-03-16] MEDS ORDERED: HYDRALAZINE HCL 20 MG/ML VIAL ONE (21:30)
[2022-03-16 21:44] LABS: Absolute Lymphocytes (CBC) 2.3 K/uL (0.7-4.9); Hematocrit 40.6 % (39.6-49.0); Lymphocytes % 26.8 % (15.3-44.8); MPV 8.5 fL (7.6-11.3); RBC Red Blood Cell Count 4.46 M/uL (4.33-5.43)
[2022-03-16 22:02] LABS: Potassium 3.4 mmol/L (3.5-5.1); Troponin High Sensitivity 7.6 pg/mL (<58.9)
[2022-03-16] MEDS ORDERED: NA CHLORIDE 0.9% 500 ML ONE (22:11)
--- NOTE | 2022-03-16 22:19 | RAD REPORT ---
EXAM DESCRIPTION: CT - Head Brain Wo Cont - 03/16/2022 10:03 pm CLINICAL HISTORY: headache COMPARISON: Head Brain Wo Cont dated 06/19/2020 TECHNIQUE: All CT scans are performed using dose optimization technique as appropriate and may inclu de automated exposure control or mA/KV adjustment according to patient size. FINDINGS: No intracranial hemorrhage, hydrocephalus or extra-axial fluid collection.No areas of brai n edema or evidence of midline shift. Cerebral atrophy. The paranasal sinuses and mastoids are clear. The calvarium is intact. IMPRESSION: No acute intracranial abnormality.
--- NOTE | 2022-03-16 22:41 | EDPHYS ---
Physician Documentation [facility] Name: Jason Jimenez Jr Age: 72 yrs Sex: Male : 1950 Arrival Date: 03/16/2022 Time: 18:37 Bed 10 Private MD: Bobby Díaz V ED Physician Froylan Dyson HPI: 03/16 21:18 This 72 yrs old Male presents to ER via Ambulatory with complaints of High Blood [facility] Pressure, Headache. 21:18 This is a 72-year-old male with history of hypertension the presents emerged part with [facility] complaints of elevated blood pressure patient states that yesterday had some episodes of palpitations but currently does not have any today. Denies any chest pain or shortness of breath. Patient also states having a mild headache. Patient took another dose of his losartan earlier today without relief of blood pressure. Patient states he is normally around 120 systolic. His blood pressure was as high as 190 systolic while at home.. Historical: - Allergies: 19:38 Ceclor; kb3 - PMHx: 19:38 Hypertension; kb3 - PSHx: 19:38 Hernia repair; Ankle replacement; kb3 19:41 Carotid endarterectomy; kb3 - Immunization history:: Adult Immunizations up to date, Client reports receiving the 2nd dose of the Covid vaccine, Last tetanus immunization: up to date. - Social history:: Smoking status: Patient denies any tobacco usage or history of. ROS: 21:18 Constitutional: Negative for fever, chills, and weight loss, Neck: Negative for injury, jmm pain, and swelling, Respiratory: Negative for shortness of breath, cough, wheezing, and pleuritic chest pain. 21:18 Cardiovascular: Positive for palpitations. 21:18 Neuro: Positive for headache. 21:18 All other systems are negative. Exam: 21:18 Constitutional: This is a well developed, well nourished patient who is awake, alert, jmm and in no acute distress. Head/Face: atraumatic. Eyes: EOMI, no conjunctival erythema appreciated ENT: Moist Mucus Membranes Neck: Trachea midline, Supple Chest/axilla: Normal chest wall appearance and motion. Cardiovascular: Regular rate and rhythm. No edema appreciated Respiratory: Normal respirations, no respiratory distress appreciated Abdomen/GI: Non distended Back: Normal ROM Skin: General appearance color normal MS/ Extremity: Moves all extremities, no obvious deformities appreciated, no edema noted to the lower extremities Neuro: Awake and alert Psych: Behavior is normal, Mood is normal, Patient is cooperative and pleasant 22:50 ECG was reviewed by the Attending Physician. [facility] Vital Signs: 19:35 BP 174 / 91; Pulse 61; Resp 20; Temp 98.; Pulse Ox 98% ; Weight 91.63 kg; Height 5 ft. kb3 11 in. (180.34 cm); Pain 1/10; 21:44 BP 148 / 89; Pulse 68; Resp 16; Pulse Ox 98% on R/A; Pain 1/10; hb 19:35 Body Mass Index 28.17 (91.63 kg, 180.34 cm) kb3 MDM: 21:18 Patient medically screened. [facility] 22:40 Data reviewed: vital signs, nurses notes. Counseling: I had a detailed discussion with sina the patient and/or guardian regarding: the historical points, exam findings, and any diagnostic results supporting the discharge/admit diagnosis, the need for outpatient follow up, to return to the emergency department if symptoms worsen or persist or if there are any questions or concerns that arise at home. 22:40 ED course: Labs were mostly unremarkable. I did discuss the slight hyponatremia with [facility] the patient along with the need for further evaluation. Patient's blood pressure was still elevated upon discharge. I did discuss reasons for return which included chest pain, shortness of breath, worsening headache, etc. Family understood and agrees plan of care.. 03/16 21:20 Order name: Basic Metabolic Panel; Complete Time: 22:05 [facility] 03/16 21:20 Order name: CBC with Diff; Complete Time: 22:05 [facility] 03/16 21:20 Order name: Troponin HS; Complete Time: 22:05 [facility] 03/16 21:21 Order name: CT Head Brain wo Cont [facility] 03/16 21:25 Order name: Head Brain Wo Cont; Complete Time: 22:27 [facility] 03/16 21:20 Order name: EKG; Complete Time: 21:21 [facility] 03/16 21:20 Order name: Cardiac monitoring; Complete Time: 21:38 [facility] 03/16 21:20 Order name: EKG - Nurse/Tech; Complete Time: 21:38 [facility] 03/16 21:20 Order name: IV Saline Lock; Complete Time: 21:38 [facility] 03/16 21:20 Order name: Labs collected and sent; Complete Time: :38 [facility] 03/16 21:20 Order name: O2 Per Protocol; Complete Time: :38 [facility] 03/16 21:20 Order name: O2 Sat Monitoring; Complete Time: :38 jm EC:50 Rate is 67 beats/min. Rhythm is regular. QRS [place] is Normal. [place] interval is normal. QRS jmm interval is normal. QT interval is normal. No Q waves. T waves are Normal. No ST changes noted. Reviewed by me. Administered Medications: 21:44 Drug: hydrALAZINE 5 mg Route: IVP; Site: right antecubital; hb 22:13 Drug: NS 0.9% 500 ml Route: IV; Rate: bolus; Site: right antecubital; hb Disposition Summary: 03/16/22 22:40 Discharge Ordered Location: Home [facility] Condition: Stable jm Diagnosis - Elevated blood-pressure reading, without diagnosis of hypertension jm Followup: jm - With: Private Physician - When: 2 - 3 days - Reason: Recheck today's complaints, Continuance of care, Re-evaluation by your physician Discharge Instructions: - Discharge Summary Sheet jm - Hypertension, Adult jmm - DASH Eating Plan [facility] Forms: - Medication Reconciliation Form [facility] - Thank You Letter [facility] - Antibiotic Education jmm - Prescription Opioid Use [facility] Signatures: Dispatcher [employer] Jamie Crawford PA PA jmm Baxter, Heather, RN RN Tiara Tim RN RN kb3
--- NOTE | 2022-03-16 22:41 | ER ---
Nurse's Notes [facility] Name: Jason Jimenez Jr Age: 72 yrs Sex: Male : 1950 Arrival Date: 03/16/2022 Time: 18:37 Bed 10 Private MD: Bboby Díaz V Diagnosis: Elevated blood-pressure reading, without diagnosis of hypertension Presentation: 03/16 19:35 Chief complaint: Patient states: PT reports elevated BP all day with an associated kb3 headache. [place] [address] to see if he could get it down, but no relief. Denies cough, congestion, SOB, CP. Coronavirus screen: Vaccine status: Patient reports receiving the 2nd dose of the covid vaccine. Client denies travel out of the [place] in the last 14 days. Ebola Screen: Patient negative for fever greater than or equal to 101.5 degrees Fahrenheit, and additional compatible Ebola Virus Disease symptoms Patient denies exposure to infectious person. Patient denies travel to an Ebola-affected area in the 21 days before illness onset. Initial Sepsis Screen: Does the patient meet any 2 criteria? No. Patient's initial sepsis screen is negative. Does the patient have a suspected source of infection? No. Patient's initial sepsis screen is negative. Risk Assessment: Do you want to hurt yourself or someone else? Patient reports no desire to harm self or others. Onset of symptoms was March 16, 2022. 19:35 Method Of Arrival: Ambulatory kb3 19:35 Acuity: [place] 3 kb3 Triage Assessment: 19:38 Headache History: Denies prior headaches. General: Appears in no apparent distress. kb3 Behavior is calm, cooperative. Pain: Complains of pain in forehead Pain does not radiate. Pain currently is 1 out of 10 on a pain scale. Quality of pain is described as aching, dull, Pain began 1 day ago. Also complains of nausea. Historical: - Allergies: 19:38 Ceclor; kb3 - PMHx: 19:38 Hypertension; kb3 - PSHx: 19:38 Hernia repair; Ankle replacement; kb3 19:41 Carotid endarterectomy; kb3 - Immunization history:: Adult Immunizations up to date, Client reports receiving the 2nd dose of the Covid vaccine, Last tetanus immunization: up to date. - Social history:: Smoking status: Patient denies any tobacco usage or history of. Screenin:35 Abuse screen: Denies threats or abuse. Denies injuries from another. Nutritional hb screening: No deficits noted. Tuberculosis screening: No symptoms or risk factors identified. Fall Risk None identified. Assessment: 21:36 General: Appears in no apparent distress. Behavior is calm, cooperative. Pain: Pain hb currently is 2 out of 10 on a pain scale. Neuro: Level of Consciousness is awake, alert, obeys commands, Oriented to person, place, time, situation, Reports headache. Cardiovascular: Patient's skin is warm and dry. Respiratory: Respiratory effort is even, unlabored, Respiratory pattern is regular, symmetrical. GI: No signs and/or symptoms were reported involving the gastrointestinal system. : No signs and/or symptoms were reported regarding the genitourinary system. EENT: No signs and/or symptoms were reported regarding the EENT system. Derm: Skin is pink, warm \T\ dry. Musculoskeletal: No signs and/or symptoms reported regarding the musculoskeletal system. Vital Signs: 19:35 BP 174 / 91; Pulse 61; Resp 20; Temp 98.; Pulse Ox 98% ; Weight 91.63 kg; Height 5 ft. kb3 11 in. (180.34 cm); Pain 1/10; 21:44 BP 148 / 89; Pulse 68; Resp 16; Pulse Ox 98% on R/A; Pain 1/10; hb 19:35 Body Mass Index 28.17 (91.63 kg, 180.34 cm) kb3 ED Course: 18:37 Patient arrived in ED. as 18:38 Bobby Díaz MD is Private Physician. as 19:38 Triage completed. kb3 19:38 Arm band placed on right wrist. kb3 21:09 Jamie Albarran PA is PHCP. jmm 21:09 Froylan Dyson MD is Attending Physician. jmm 21:28 Jeanie Yee, ADRIANO is Primary Nurse. hb 21:36 Patient has correct armband on for positive identification. hb 21:38 slide fasteners inspector on. Pulse ox on. NIBP on. mm9 21:38 Basic Metabolic Panel Sent. mm9 21:38 CBC with Diff Sent. mm9 21:38 Troponin HS Sent. mm9 21:51 Initial lab(s) drawn, by va, sent to lab. EKG done, by ED staff, reviewed by Jamie mm9 Avis GORMAN. Inserted saline lock: 20 gauge in right antecubital area, using aseptic technique. Blood collected. 22:04 Head Brain Wo Cont In Process Unspecified. EDMS 23:06 No provider procedures requiring assistance completed. IV discontinued, intact, hb bleeding controlled, No redness/swelling at site. Administered Medications: 21:44 Drug: hydrALAZINE 5 mg Route: IVP; Site: right antecubital; hb 22:13 Drug: NS 0.9% 500 ml Route: IV; Rate: bolus; Site: right antecubital; hb Medication: 21:35 VIS not applicable for this client. hb Outcome: 22:40 Discharge ordered by . kalee 23:06 Discharged to home ambulatory. hb 23:06 Condition: stable 23:06 Discharge instructions given to patient, Instructed on discharge instructions, follow up and referral plans. medication usage, Demonstrated understanding of instructions, follow-up care, medications. 23:12 Patient left the ED. hb Signatures: Dispatcher [employer] EDMS Jamie Albarran PA PA jmm Martinez, Amelia as Jeanie Yee, RN RN Tiara Ruvalcaba, RN RN Nelly Salazar
[2022-03-16 23:30] VITALS: TEMP 98; O2SAT 98
[2022-03-16 23:40] VITALS: BP 148/89
--- NOTE | 2022-03-19 16:04 | EKG ---
Test Date: 2022-03-16 Test Time: 21:47:47 Heat Treat Furnace Operator: JAIME MEASUREMENT RESULTS: Intervals: Rate: 67 MS: 208 QRSD: 90 QT: 410 QTc: 433 [place]: P: 46 MS: 208 QRS: -22 T: 26 INTERPRETIVE STATEMENTS: Normal sinus rhythm Possible Left atrial enlargement Borderline ECG Compared to ECG 08/29/2020 09:21:57 Sinus bradycardia no longer present First degree AV block no longer present Electronically Signed On 03-19-22 15:59:22 CDT by Virgilio Sadler
== END 2022-03-16 23:12 | disposition home or self-care (01) ==
LOC: ER 18:36
DX: I10 Essential (primary) hypertension (principal); Z88.1 Allergy status to other antibiotic agents
CPT/HCPCS: 93005; 85025; 80048; 36415; 84484; 70450; 96374; 99284; J0360; J7040

== ENCOUNTER 2022-03-19 12:45 | Day surgery (SDC) | payer OTHER ==
--- NOTE | 2022-03-14 10:34 | RAD REPORT ---
EXAM DESCRIPTION: RAD - Chest Pa And Lat (2 Views) - 03/14/2022 10:04 am CLINICAL HISTORY: Pre op pending renal angiogram COMPARISON: Chest Single View dated 06/19/2020; Chest Pa And Lat (2 Views) dated 04/08/2018 FINDINGS: Lines: None. Lungs: No evidence of edema or pneumonia. Pleural: No significant pleural effusions or pneumothorax. Cardiac: The heart size is within normal limits. Mediastinum: Within normal limits. Bones: No acute fractures. Other: None IMPRESSION: No acute cardiopulmonary disease.
[2022-03-14 11:24] LABS: Absolute Lymphocytes (CBC) 1.4 K/uL (0.7-4.9); Lymphocytes % 23.9 % (15.3-44.8); MCV 92.5 fL (80-100); MPV 9.1 fL (7.6-11.3); RBC Red Blood Cell Count 4.86 M/uL (4.33-5.43)
[2022-03-14 11:36] LABS: Potassium 4.2 mmol/L (3.5-5.1)
[2022-03-14 11:39] LABS: Protime INR 0.95
[2022-03-19] MEDS ORDERED: NA CHLORIDE 0.9% 500 ML ONE (12:54)
[2022-03-19 13:11] VITALS: TEMP 97
[2022-03-19] MEDS ORDERED: FENTANYL CITR 100 MCG/2 ML ONE (14:00)
[2022-03-19] MEDS ORDERED: HEPA 1000U/500MLS 2,000 UNIT/1,000 ML BAG IV ONE (14:00)
[2022-03-19] MEDS ORDERED: LIDOCAINE 1% 20 ML MDV ONE (14:00)
[2022-03-19] MEDS ORDERED: MIDAZOLAM HCL 2 MG/2 ML INJ ONE (14:01)
[2022-03-19] MEDS ORDERED: HEPARIN 5000 UNIT/ML 1 ML VIAL ONE (14:01)
[2022-03-19] MEDS ORDERED: ATROPINE SULF 1 MG/10 ML SYR IV ONE (14:01)
[2022-03-19] MEDS ORDERED: VERAPAMIL HCL 10 MG/4 ML VIAL IV ONE (14:01)
[2022-03-19] MEDS ORDERED: HEPARIN 10,000 UNIT/10 ML VIAL IV ONE (14:04)
[2022-03-19 16:37] VITALS: O2SAT 97
[2022-03-19 16:52] VITALS: BP 135/68
--- NOTE | 2022-03-20 02:56 | OP ---
Date of Procedure: 03/19/2022 Surgeon: SANTO ALCANTAR Procedure Performed: Bilateral selective renal angiogram. Indication: Significant renal artery stenosis by Doppler. Access: Right radial artery 6-Jordanian, closed with TR band. Complications: None. Bleeding: Less than 10 mL. Anesthesia: Total sedation time was 50 minutes. Description Of Procedure: After risks, benefits, and alternatives were explained, the patient agreed to procedure and signed informed consent. Patient was brought into the cardiac catheterization [facility], prepped and draped in sterile fashion. Then I accessed right radial artery. Using micropunc ture kit, placed 6-Jordanian sheath and took a 6-Jordanian long JR4 catheter into the abdominal aorta and e ngaged the left and right renal artery and took standard views and then removed the catheter and the sheath, placed TR band with good hemostasis. Findings: Totally normal bilateral renal angiogram. No disease is seen. Plan: Medical management. /MODL Voice ID: [id number] Report ID: [id number]
== END 2022-03-19 17:05 | disposition home or self-care (01) ==
LOC: CCL 12:45
PROVIDERS: ATTEND Internal Medicine
DX: I70.1 Atherosclerosis of renal artery (principal); I25.10 Atherosclerotic heart disease of native coronary artery without angina pectoris; I65.29 Occlusion and stenosis of unspecified carotid artery; I10 Essential (primary) hypertension; E78.5 Hyperlipidemia, unspecified; Z87.891 Personal history of nicotine dependence; Z79.02 Long term (current) use of antithrombotics/antiplatelets; Z79.899 Other long term (current) drug therapy; Z88.1 Allergy status to other antibiotic agents; Z82.49 Family history of ischemic heart disease and other diseases of the circulatory system
CPT/HCPCS: 85025; 80048; 36415; 85610; 85730; 71046; 36252; C1893; C1887; J1644 ×2; J2250; J3010; J7040

== ENCOUNTER 2022-07-03 13:17 | Emergency (ER) | payer OTHER ==
[2022-07-03 13:44] LABS: Absolute Lymphocytes (CBC) 1.8 K/uL (0.7-4.9); Hematocrit 41.5 % (39.6-49.0); Lymphocytes % 22.9 % (15.3-44.8); MCV 92.2 fL (80-100); MPV 8.4 fL (7.6-11.3)
[2022-07-03 14:11] LABS: Potassium 3.3 mmol/L (3.5-5.1)
[2022-07-03 14:12] LABS: Troponin High Sensitivity 7.9 pg/mL (<58.9)
--- NOTE | 2022-07-03 14:51 | RAD REPORT ---
EXAM DESCRIPTION: RAD - Chest Single View - 07/03/2022 2:43 pm CLINICAL HISTORY: CHEST PAIN Chest pain. COMPARISON: Chest Pa And Lat (2 Views) dated 03/14/2022; Chest Single View dated 06/19/2020; Chest Pa And Lat (2 Views) dated 04/08/2018 FINDINGS: Portable technique limits examination quality. The lungs are grossly clear. The heart is normal in size. No displaced fractures. IMPRESSION: No acute intrathoracic process suspected.
--- NOTE | 2022-07-03 17:23 | ER ---
Nurse's Notes [facility] Name: Jason Jimenez Jr Age: 72 yrs Sex: Male : 1950 Arrival Date: 07/03/2022 Time: 13:18 Bed 7 Private MD: Bobby Díaz V Diagnosis: Palpitations;Hyponatremia;Hypokalemia Presentation: 07/03 13:21 Chief complaint: Patient states: feels like his heart has been "beating hard and ap3 skipping beats" for the last couple of days. patient reports mild chest pain this morning, but states that it has since resolved. patient denies any nausea or vomiting. Coronavirus screen: At this time, the client does not indicate any symptoms associated with coronavirus-19. Ebola Screen: No symptoms or risks identified at this time. Initial Sepsis Screen: Does the patient meet any 2 criteria? No. Patient's initial sepsis screen is negative. Does the patient have a suspected source of infection? No. Patient's initial sepsis screen is negative. Risk Assessment: Do you want to hurt yourself or someone else? Patient reports no desire to harm self or others. Onset of symptoms was July 01, 2022. 13:21 Method Of Arrival: Ambulatory ap3 13:26 Acuity: MILTON 2 ap3 Triage Assessment: 13:25 General: Appears in no apparent distress. Behavior is cooperative, appropriate for age. ap3 Pain: Complains of pain in anterior aspect of left upper chest and left breast Quality of pain is described as patient states the feeling isn't painful but describes it as a "weird hollow feeling". Neuro: Level of Consciousness is awake, alert, obeys commands, Oriented to person, place, time, situation. Cardiovascular: Patient's skin is warm and dry. Respiratory: Airway is patent Respiratory effort is even, unlabored, Respiratory pattern is regular, symmetrical. Historical: - Allergies: 13:24 Ceclor; ap3 - Home Meds: 16:28 CBD gummies [Active]; aspirin 81 mg Oral cap 1 cap once daily [Active]; ld1 16:34 hydralazine 10 mg Oral tab 1 tab 2 times per day [Active]; pantoprazole 40 mg oral TbEC sg5 1 tab once daily [Active]; - PMHx: 13:24 Hypertension; ap3 16:28 Aortic aneurysm; Carotid procedure; TIA; ld1 - PSHx: 13:24 Ankle replacement; Carotid endarterectomy; hernia repair; ap3 - Immunization history:: Client reports receiving the 2nd dose of the Covid vaccine, Flu vaccine is up to date. - Social history:: Smoking status: Patient/guardian denies using tobacco, the patient reports quitting approximately 35 years ago, Patient uses alcohol, only on a social basis. - Family history:: unknown. - Code Status:: Full code. Screenin:25 Abuse screen: Denies threats or abuse. Nutritional screening: No deficits noted. ap3 Tuberculosis screening: No symptoms or risk factors identified. 17:35 [facility] ED Fall Risk Assessment (Adult) History of falling in the last 3 months, sg5 including since admission No falls in past 3 months (0 pts) Confusion or Disorientation No (0 pts) Intoxicated or Sedated No (0 pts) Impaired Gait No (0 pts) Mobility Assist Device Used No (0 pt) Altered Elimination No (0 pt) Score/Fall Risk Level 0 - 2 = Low Risk. Assessment: 16:18 General: Appears in no apparent distress. comfortable, well groomed, Behavior is calm, sg5 cooperative, appropriate for age. Pain: Pain began 2-3 days ago. Is intermittent. Neuro: No deficits noted. Level of Consciousness is awake, alert, obeys commands, Oriented to person, place, time, situation, Appropriate for age Dobie Worker are equal bilaterally Moves all extremities. Full function Gait is steady, Speech is normal, Facial symmetry appears normal, Pupils are PERRLA, Intact. Cardiovascular: No deficits noted. Reports palpitations, palpitations went away while in ER around 1530 Heart tones S1 S2 present Capillary refill is > 3 seconds Rhythm is regular Chest pain is denied. Respiratory: No deficits noted. Breath sounds are clear bilaterally. GI: No deficits noted. No signs and/or symptoms were reported involving the gastrointestinal system. Bowel sounds present X 4 quads. : No deficits noted. No signs and/or symptoms were reported regarding the genitourinary system. EENT: No deficits noted. No signs and/or symptoms were reported regarding the EENT system. Derm: No deficits noted. No signs and/or symptoms reported regarding the dermatologic system. Musculoskeletal: No deficits noted. No signs and/or symptoms reported regarding the musculoskeletal system. Vital Signs: 13:21 BP 141 / 87; Pulse 74; Resp 19; Pulse Ox 99% ; Weight 89.36 kg; Height 5 ft. 11 in. ap3 (180.34 cm); 13:26 Temp 97.9(T); ap3 16:20 BP 145 / 78; Pulse 68; Resp 13; Pulse Ox 100% on R/A; Pain 0/10; ld1 17:20 BP 145 / 78; Pulse 65; Resp 18; Pulse Ox 97% on R/A; Pain 0/10; sg5 13:21 Body Mass Index 27.48 (89.36 kg, 180.34 cm) ap3 ED Course: 12:00 Bed in low position. Call light in reach. Side rails up X 1. sg5 13:18 Patient arrived in ED. mr 13:19 Bobby Díaz MD is Private Physician. mr 13:25 Arm band placed on right wrist. ap3 13:26 Triage completed. ap3 13:27 EKG done, by ED staff. tm3 13:34 Emerson Beebe DO is Attending Physician. ms3 16:05 Blanca Dean, ADRIANO is Primary Nurse. ld1 16:20 Troponin High Sensitivity Sent. ld1 17:23 Bobby Díaz MD is Referral Physician. ms3 17:29 IV discontinued. sg5 17:31 No provider procedures requiring assistance completed. ld1 Administered Medications: No medications were administered Medication: 17:31 VIS not applicable for this client. sg5 Outcome: 17:23 Discharge ordered by MD. ms3 17:35 Discharged to home ambulatory. sg5 17:35 Condition: good 17:35 Discharge instructions given to patient, Instructed on discharge instructions, follow up and referral plans. Demonstrated understanding of instructions, follow-up care, medications. 17:36 Patient left the ED. sg5 Signatures: Perlita Maxi tm3 Alma Pond mr Shweta Underwood, RN RN ap3 Emerson Beebe DO DO ms3 Blanca Dean, ADRIANO [place] ld1 Aaliyah Kaur RN RN sg5
--- NOTE | 2022-07-03 17:24 | EDPHYS ---
Physician Documentation [facility] Name: Jason Jimenez Jr Age: 72 yrs Sex: Male : 1950 Arrival Date: 07/03/2022 Time: 13:18 Bed 7 Private MD: Bobby Díaz V ED Physician Emerson Beebe HPI: 07/03 13:38 This 72 yrs old Male presents to ER via Ambulatory with complaints of Palpitations. ms3 13:38 72-year-old male with past medical history of hypertension presents for palpitations ms3 that began yesterday morning. Patient states he had mild chest discomfort this morning. Patient denies nausea, vomiting, shortness of breath, fevers, chills. Patient denies alleviating or inciting factors.. Historical: - Allergies: 13:24 Ceclor; ap3 - Home Meds: 16:28 CBD gummies [Active]; aspirin 81 mg Oral cap 1 cap once daily [Active]; ld1 16:34 hydralazine 10 mg Oral tab 1 tab 2 times per day [Active]; pantoprazole 40 mg oral TbEC sg5 1 tab once daily [Active]; - PMHx: 13:24 Hypertension; ap3 16:28 Aortic aneurysm; Carotid procedure; TIA; ld1 - PSHx: 13:24 Ankle replacement; Carotid endarterectomy; hernia repair; ap3 - Immunization history:: Client reports receiving the 2nd dose of the Covid vaccine, Flu vaccine is up to date. - Social history:: Smoking status: Patient/guardian denies using tobacco, the patient reports quitting approximately 35 years ago, Patient uses alcohol, only on a social basis. - Family history:: unknown. - Code Status:: Full code. ROS: 13:38 Constitutional: Negative for fever, and chills. Neck: Negative for injury, pain, and ms3 swelling, Respiratory: Negative for shortness of breath, cough, wheezing, and pleuritic chest pain, Abdomen/GI: Negative for abdominal pain, nausea, vomiting, diarrhea, and constipation, Skin: Negative for injury, rash, and discoloration. 13:38 Cardiovascular: Positive for palpitations. 13:38 All other systems are negative. Exam: 13:38 Constitutional: This is a well developed, well nourished patient who is awake, alert, ms3 and in no acute distress. Head/Face: Normocephalic, atraumatic. Chest/axilla: Normal chest wall appearance and motion. Nontender with no deformity. Cardiovascular: Regular rate and rhythm with a normal S1 and S2. No gallops, murmurs, or rubs. Normal PMI, no JVD. No pulse deficits. Respiratory: Lungs have equal breath sounds bilaterally, clear to auscultation and percussion. No rales, rhonchi or wheezes noted. No increased work of breathing, no retractions or nasal flaring. Abdomen/GI: Soft, non-tender, with normal bowel sounds. No distension or tympany. No guarding or rebound. No evidence of tenderness throughout. Skin: Warm, dry with normal turgor. Normal color with no rashes, no lesions, and no evidence of cellulitis. MS/ Extremity: Pulses equal, no cyanosis. Neurovascular intact. Full, normal range of motion. 13:39 ECG was reviewed by the Attending Physician. ms3 Vital Signs: 13:21 BP 141 / 87; Pulse 74; Resp 19; Pulse Ox 99% ; Weight 89.36 kg; Height 5 ft. 11 in. ap3 (180.34 cm); 13:26 Temp 97.9(T); ap3 16:20 BP 145 / 78; Pulse 68; Resp 13; Pulse Ox 100% on R/A; Pain 0/10; ld1 17:20 BP 145 / 78; Pulse 65; Resp 18; Pulse Ox 97% on R/A; Pain 0/10; sg5 13:21 Body Mass Index 27.48 (89.36 kg, 180.34 cm) ap3 MDM: 13:34 Patient medically screened. ms3 13:38 Differential diagnosis: arrythmia, ACS vs Dehydration. ms3 18:02 Data reviewed: vital signs, nurses notes, lab test result(s), EKG, radiologic studies, ms3 and as a result, I will discharge patient. Consideration of Admission/Observation Escalation of care including admission/observation considered. Troponins negative. Independent interpretation of the following test(s) in the Emergency Department EKG: See my EKG interpretation above medical advisor: rate is 65 beats/min, Rhythm is normal sinus rhythm, regular, with no ectopy, Interpretation: normal rate, normal rhythm. Counseling: I had a detailed discussion with the patient and/or guardian regarding: the historical points, exam findings, and any diagnostic results supporting the discharge/admit diagnosis, lab results, radiology results, the need for outpatient follow up, to return to the emergency department if symptoms worsen or persist or if there are any questions or concerns that arise at home. ED course: Discussed labs, chest x-ray, EKG findings with patient. 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 Patient and his daughter understand and agree with plan. All questions were answered. Return precautions discussed include chest pain, shortness of breath, nausea, vomiting, sweating, worsening symptoms, or any other concerns. On reevaluation patient is alert and oriented x4, no apparent distress, nontoxic, ambulatory in the emergency department, speaking full sentences, without pain. 07/03 13:27 Order name: Basic Metabolic Panel ap3 07/03 13:27 Order name: CBC with Diff ap3 07/03 13:27 Order name: Troponin HS ap3 07/03 13:50 Order name: CBC with Automated Diff; Complete Time: 14:18 EDMS 07/03 14:12 Order name: Basic Metabolic Panel; Complete Time: 14:18 EDMS 07/03 14:12 Order name: Troponin High Sensitivity; Complete Time: 14:18 EDMS 07/03 13:27 Order name: XRAY Chest (1 view) ap3 07/03 13:27 Order name: EKG; Complete Time: 13:28 ap3 07/03 13:27 Order name: Cardiac monitoring; Complete Time: 16:38 ap3 07/03 13:27 Order name: EKG - Nurse/Tech; Complete Time: 13:27 ap3 07/03 13:27 Order name: IV Saline Lock; Complete Time: 13:27 ap3 07/03 14:52 Order name: RAD; Complete Time: 15:42 EDMS 07/03 15:45 Order name: Troponin High Sensitivity ms3 07/03 16:38 Order name: Troponin High Sensitivity; Complete Time: 17:09 EDMS 07/03 13:27 Order name: Labs collected and sent; Complete Time: 13:27 ap3 07/03 13:27 Order name: O2 Per Protocol; Complete Time: 16:05 ap3 07/03 13:27 Order name: O2 Sat Monitoring; Complete Time: 16:05 ap3 EC:39 Rate is 67 beats/min. Rhythm is regular. QRS [place] is Normal. TN interval is normal. QRS ms3 interval is normal. Clinical impression: NSR w/ Non-specific ST/T Changes. Interpreted by me. Reviewed by me. Administered Medications: No medications were administered Disposition Summary: 07/03/22 17:23 Discharge Ordered Location: Home ms3 Condition: Stable ms3 Diagnosis - Palpitations ms3 - Hyponatremia ms3 - Hypokalemia ms3 Followup: ms3 - With: Bobby Díaz MD - When: 1 - 2 days - Reason: Recheck today's complaints Followup: ms3 - With: Private Physician - When: 1 - 2 days - Reason: Recheck today's complaints Discharge Instructions: - Discharge Summary Sheet ms3 - Hyponatremia ms3 - Palpitations ms3 - Hypokalemia ms3 Forms: - Medication Reconciliation Form ms3 - Thank You Letter ms3 - Antibiotic Education ms3 - Prescription Opioid Use ms3 Signatures: Dispatcher [employer] EDMS Shweta Underwood, RN RN ap3 Emerson Beebe DO DO ms3 Blanca Dean, RN RN ld1 Aaliyah Kaur RN RN sg5
[2022-07-03 17:49] VITALS: TEMP 97.9
[2022-07-03 17:50] VITALS: BP 145/78
[2022-07-03 17:52] VITALS: O2SAT 97
--- NOTE | 2022-07-04 13:00 | EKG ---
Test Date: 2022-07-03 Test Time: 13:25:39 Beater Lead: TM MEASUREMENT RESULTS: Intervals: Rate: 67 RI: 186 QRSD: 82 QT: 408 QTc: 431 [place]: P: 30 RI: 186 QRS: 5 T: 4 INTERPRETIVE STATEMENTS: Normal sinus rhythm Septal infarct, age undetermined Abnormal ECG Compared to ECG 03/16/2022 21:47:47 Myocardial infarct finding now present Electronically Signed On 07-04-22 12:58:33 OTHER SPATIAL SCIENTIST by Virgilio Sadler
== END 2022-07-03 17:36 | disposition home or self-care (01) ==
LOC: ER 13:17
DX: E87.1 Hypo-osmolality and hyponatremia (principal); E87.6 Hypokalemia; R07.89 Other chest pain; I10 Essential (primary) hypertension; Z79.82 Long term (current) use of aspirin; Z88.1 Allergy status to other antibiotic agents
CPT/HCPCS: 36415; 71045; 80048; 84484; 85025; 93005